=== PATIENT | male | born 1980 ===

== ENCOUNTER 2024-08-22 14:00 | Outpatient (CLI) | payer BC, SELFPAY ==
--- NOTE | ~2024-08-22 | XR_ITS ---
XR hand RT min 3V Ordering provider: Caleb Robledo, History: . Pain in R hand . Comparison: None. FINDINGS: BONES: No acute fracture or dislocation. JOINT SPACES: Normal. SOFT TISSUES: Normal. IMPRESSION: No acute osseous abnormality right hand. Reviewed, dictated and finalized at location A.
== END 2024-08-22 14:01 | disposition home or self-care (01) ==
PROVIDERS: PCP Family Medicine; Visit Provider Family Medicine
DX: M79.641 Pain in right hand (principal)
CPT/HCPCS: 73130